=== PATIENT | female | born 1990 | race Two or more races ===

== ENCOUNTER 2022-06-30 13:52 | Outpatient (CLI) | payer OTHER | END 2022-06-30 13:53 | disposition home or self-care (01) | LOC: LAB 13:52 | PROVIDERS: ATTEND Nurse Practitioner | DX: Z32.01 Encounter for pregnancy test, result positive (principal) | CPT/HCPCS: 36415; 84702 ==

== ENCOUNTER 2022-07-05 12:26 | Outpatient (CLI) | payer OTHER ==
[2022-07-05 13:16] LABS: THYROID STIMULATING HORMONE 2.61 uIU/mL (0.34-5.60)
[2022-07-05 13:18] LABS: FREE T4 (FREE THYROXINE) 0.78 ng/dL (0.58-1.64)
[2022-07-05 14:04] LABS: ESTIMATED AVERAGE GLUCOSE 108 mg/dL (70-100); HEMOGLOBIN A1c% 5.4 % (4.27-6.07)
[2022-07-08 16:08] LABS: CARDIOLIPIN IGG <9 GPL U/mL (0-14); CARDIOLIPIN IGM <9 MPL U/mL (0-12)
== END 2022-07-05 12:27 | disposition home or self-care (01) ==
LOC: LAB 12:26
PROVIDERS: ATTEND Nurse Practitioner
DX: N96 Recurrent pregnancy loss (principal); Z32.01 Encounter for pregnancy test, result positive
CPT/HCPCS: 36415; 83036; 84439; 84443; 84702; 85598; 85613; 85732; 86147

== ENCOUNTER 2022-07-11 12:51 | Outpatient (CLI) | payer OTHER | END 2022-07-11 12:52 | disposition home or self-care (01) | LOC: LAB 12:51 | PROVIDERS: ATTEND Nurse Practitioner | DX: O03.9 Complete or unspecified spontaneous abortion without complication (principal) | CPT/HCPCS: 36415; 84702 ==

== ENCOUNTER 2022-07-15 09:55 | Outpatient (CLI) | payer OTHER ==
--- NOTE | 2022-07-15 13:31 | Ultrasound Report ---
PROCEDURE: OB First Trimester w/TV INDICATIONS: POSITIVE TEST TECHNIQUE: Real-time scanning was performed of the fetus and maternal pelvic organs, with image documentation. Endovaginal scanning was also performed to better visualize the fetus and maternal ovaries. COMPARISON: None FINDINGS: Uterus normal in size, and echotexture. Endometrial thickness measures approximately 1 cm. No evidenc e of intrauterine . Both ovaries normal in size and echotexture. No evidence of adnexal mass IMPRESSION: No evidence of intrauterine . Differential possibilities include normal early , mis sed and nonvisualized ectopic Reviewed by: Nawaf Uriostegui MD on 07/15/2022 12:30 PM JOANNA Approved by: Nawaf Uriostegui MD on 07/15/2022 12:30 PM AKSHERRI Station ID: [id number]
== END 2022-07-15 09:56 | disposition home or self-care (01) ==
LOC: DI 09:55
PROVIDERS: ATTEND Nurse Practitioner
DX: Z32.01 Encounter for pregnancy test, result positive (principal)

== ENCOUNTER 2022-07-18 11:09 | Outpatient (CLI) | payer OTHER | END 2022-07-18 11:10 | disposition home or self-care (01) | LOC: LAB 11:09 | PROVIDERS: ATTEND Nurse Practitioner | DX: Z32.01 Encounter for pregnancy test, result positive (principal) | CPT/HCPCS: 36415; 84702 ==

== ENCOUNTER 2022-12-19 09:37 | Emergency (ER) | payer OTHER ==
[2022-12-19 09:51] VITALS: BP 124/69
[2022-12-19 10:39] LABS: BASOPHILS % (AUTO) 0.6 %; EOSINOPHILS # (AUTO) 0.1 10^3/uL (0.0-0.7); EOSINOPHILS % (AUTO) 1.4 %; HCT - HEMATOCRIT 43.5 % (37.0-47.0); HGB - HEMOGLOBIN 13.7 g/dL (12.0-16.0); LYMPHOCYTES # (AUTO) 1.8 10^3/uL (1.5-3.5); LYMPHOCYTES % (AUTO) 35.1 %; MEAN CORPUSCULAR HEMOGLOBIN 28.6 pg (27.0-31.0); MEAN CORPUSCULAR HGB CONC 31.5 g/dL (32.0-36.0); MEAN CORPUSCULAR VOLUME 90.8 fL (81.0-99.0); MEAN PLATELET VOLUME 10.7 fL (7.9-10.8); MONOCYTES # (AUTO) 0.3 10^3/uL (0.0-1.0); MONOCYTES % (AUTO) 5.2 %; NEUTROPHILS % (AUTO) 57.5 %; PLT - PLATELET COUNT 264 10^3/uL (130-450); RED BLOOD COUNT 4.79 10^6/uL (4.20-5.40); RED CELL DISTRIBUTION WIDTH 12.1 % (12.0-15.0); WHITE BLOOD COUNT 5.2 x10^3/uL (4.8-10.8)
[2022-12-19 11:13] LABS: HCG UR QUAL POSITIVE
[2022-12-19 11:17] LABS: ALBUMIN 4.3 g/dL (3.2-5.5); ALBUMIN/GLOBULIN RATIO 1.2 (1.0-2.2); BILIRUBIN,TOTAL 0.5 mg/dL (0.2-1.0); CALCIUM 9.6 mg/dL (8.5-10.3); CREATININE 0.6 mg/dL (0.4-1.0); POTASSIUM 4.2 mmol/L (3.5-5.0); TOTAL PROTEIN 7.9 g/dL (6.7-8.2)
--- NOTE | 2022-12-19 12:26 | Ultrasound Report ---
PROCEDURE: OB First Trimester w/TV INDICATIONS: bleeding OUTSIDE/PRIOR DATING DATA: Last menstrual period (LMP): 11/10/2022. LMP-based estimated date of delivery (SLICK): 08/17/2023. First dating scan (date and location): Today's exam. Estimated date of delivery (SLICK) from first dating scan: Not applicable. TECHNIQUE: Real-time scanning was performed of the fetus and maternal pelvic organs, with image documentation. Endovaginal scanning was also performed to better visualize the fetus and maternal ovaries. COMPARISON: FINDINGS: No intrauterine or gestational sac identified. Maternal organs: Ovaries are unremarkable. No free fluid. No adnexal mass. IMPRESSION: of unknown location, with no intrauterine gestational sac or adnexal mass visualized. Diffe rential includes early gestational , ectopic , or missed miscarriage. Trend beta hC Gs and sonographic follow up as necessary. Reviewed by: Daniel Osborn on 12/19/2022 12:24 PM PDT Approved by: Daniel Osborn on 12/19/2022 12:24 PM PDT Station ID: [id number]
--- NOTE | 2022-12-19 13:00 | ED Physician Documentation ---
PD HPI FEMALE - Stated complaint Stated Complaint: 5WKS PREG BLEEDING - Chief complaint Chief Complaint: Abd Pain - History obtained from History obtained from: Patient (32-year-old G4, P0, 3 miscarriages in the past. Last menses November 10. She had some spotting and dark discharge over the weekend not associated with any pain.) PD PAST MEDICAL HISTORY - Allergies Allergies/Adverse Reactions: Allergies Allergy/AdvReac Type Severity Reaction Status Date / Time No Known Drug Allergies Allergy Verified 12/19/22 09:50 PD ED PE NORMAL - Vitals Vital signs reviewed: Yes - General General: Alert and oriented X 3, No acute distress - Abdomen Abdomen: Soft, Non tender - Neuro Neuro: Alert and oriented X 3, Normal speech Results - Vitals Vitals: Vital Signs - 24 hr 12/19/22 09:48 Temperature 36.4 C L Heart Rate 65 Respiratory 20 Rate Blood Pressure 124/69 O2 Saturation 100 Oxygen O2 Source Room air - Labs Labs: Laboratory Tests 12/19/22 12/19/22 12/19/22 09:53 10:29 10:29 WBC 5.2 RBC 4.79 Hgb 13.7 Hct 43.5 MCV 90.8 MCH 28.6 MCHC 31.5 L RDW 12.1 Plt Count 264 MPV 10.7 Neut # (Auto) 3.0 Lymph # (Auto) 1.8 Teller # (Auto) 0.3 Eos # (Auto) 0.1 Baso # (Auto) 0.0 Absolute Nucleated RBC 0.00 Nucleated RBC % 0.0 Sodium 138 Potassium 4.2 Chloride 104 Carbon Dioxide 26 Anion Gap 8.0 BUN 11 Creatinine 0.6 Estimated GFR (MDRD) 114 Glucose 91 Calcium 9.6 Total Bilirubin 0.5 AST 18 ALT 18 Alkaline Phosphatase 28 L Total Protein 7.9 Albumin 4.3 Globulin 3.6 Albumin/Globulin Ratio 1.2 Lipase 39 HCG, Quant Urine HCG, Qual POSITIVE Blood Type Blood Type Recheck 12/19/22 12/19/22 12/19/22 10:29 10:29 10:57 WBC RBC Hgb Hct MCV MCH MCHC RDW Plt Count MPV Neut # (Auto) Lymph # (Auto) Teller # (Auto) Eos # (Auto) Baso # (Auto) Absolute Nucleated RBC Nucleated RBC % Sodium Potassium Chloride Carbon Dioxide Anion Gap BUN Creatinine Estimated GFR (MDRD) Glucose Calcium Total Bilirubin AST ALT Alkaline Phosphatase Total Protein Albumin Globulin Albumin/Globulin Ratio Lipase HCG, Quant 654.04 Urine HCG, Qual Blood Type A POSITIVE Blood Type Recheck A POSITIVE - Rads (name of study) OB ultrasound was nondiagnostic without IUP or abnormality. Relevant Findings:: Final report received, EMP independent interpretation of test PD Medical Decision Making - ED course Complexity details: reviewed results (CBC reviewed and normal. Chemistry panel reviewed and normal. hCG 654 and urine test positive) ED course: This is a 32-year-old woman who has symptoms concerning for miscarriage. Her beta hCG was below the discriminatory threshold and her ultrasound was nondiagnostic. Discussed need for close follow-up and repeat beta-hCG and she voices understanding. Departure - Departure Disposition: 01 Home, Self Care Clinical Impression: Threatened Condition: Good Record reviewed to determine appropriate education?: Yes Instructions: ED Miscarriage Poss Comments: You were seen today for concerns for bleeding and spotting with discharge in . As discussed, I cannot really give you any good nor bad news. Your beta hCG today was 654. The ultrasound did not show any evidence of , nor any concerning findings either. As discussed, we do not particularly expect to see any sign of until the beta-hCG is above 1500. Arrange with your doctor or your OB to have a repeat beta-hCG done in 48 hours, midmorning Monday, and ideally a repeat ultrasound in about a week. Return if worse. For your records your blood type is a positive. Discharge Date/Time: 12/19/22 13:29
== END 2022-12-19 13:29 | disposition home or self-care (01) ==
LOC: ED 09:37
DX: O20.0 Threatened abortion (principal); Z3A.01 Less than 8 weeks gestation of pregnancy
CPT/HCPCS: 36415; 80053; 81025; 83690; 84702; 85025; 86900; 86901; 99283; 99284

== ENCOUNTER 2022-12-21 11:57 | Outpatient (CLI) | payer OTHER ==
[2022-12-21 12:26] LABS: BASOPHILS % (AUTO) 0.5 %; EOSINOPHILS # (AUTO) 0.1 10^3/uL (0.0-0.7); EOSINOPHILS % (AUTO) 1.5 %; HCT - HEMATOCRIT 42.6 % (37.0-47.0); HGB - HEMOGLOBIN 13.6 g/dL (12.0-16.0); LYMPHOCYTES % (AUTO) 33.6 %; MEAN CORPUSCULAR HEMOGLOBIN 28.9 pg (27.0-31.0); MEAN CORPUSCULAR HGB CONC 31.9 g/dL (32.0-36.0); MEAN CORPUSCULAR VOLUME 90.6 fL (81.0-99.0); MEAN PLATELET VOLUME 10.6 fL (7.9-10.8); MONOCYTES # (AUTO) 0.3 10^3/uL (0.0-1.0); MONOCYTES % (AUTO) 5.3 %; NEUTROPHILS # (AUTO) 3.5 10^3/uL (1.5-6.6); NEUTROPHILS % (AUTO) 58.9 %; PLT - PLATELET COUNT 269 10^3/uL (130-450); WHITE BLOOD COUNT 5.9 x10^3/uL (4.8-10.8)
[2022-12-22 04:09] LABS: HBsAG SCREEN Negative (Negative)
[2022-12-22 07:10] LABS: HIV SCREEN 4TH GENERATION Non Reactive (Non Reactive)
== END 2022-12-21 11:58 | disposition home or self-care (01) ==
LOC: LAB 11:57
PROVIDERS: ATTEND Family Medicine
DX: O20.9 Hemorrhage in early pregnancy, unspecified (principal); Z3A.01 Less than 8 weeks gestation of pregnancy
CPT/HCPCS: 36415; 84702; 85025; 86592; 86762; 86850; 86900; 86901; 87340; 87389

== ENCOUNTER 2022-12-25 17:57 | Emergency (ER) | payer OTHER ==
[2022-12-25 19:34] LABS: BASOPHILS # (AUTO) 0.1 10^3/uL (0.0-0.1); BASOPHILS % (AUTO) 0.5 %; EOSINOPHILS # (AUTO) 0.1 10^3/uL (0.0-0.7); EOSINOPHILS % (AUTO) 1.2 %; HGB - HEMOGLOBIN 12.4 g/dL (12.0-16.0); LYMPHOCYTES # (AUTO) 2.7 10^3/uL (1.5-3.5); LYMPHOCYTES % (AUTO) 28.8 %; MEAN CORPUSCULAR HEMOGLOBIN 29.2 pg (27.0-31.0); MEAN CORPUSCULAR HGB CONC 31.8 g/dL (32.0-36.0); MEAN CORPUSCULAR VOLUME 91.8 fL (81.0-99.0); MEAN PLATELET VOLUME 10.5 fL (7.9-10.8); MONOCYTES # (AUTO) 0.5 10^3/uL (0.0-1.0); NEUTROPHILS % (AUTO) 64.3 %; PLT - PLATELET COUNT 228 10^3/uL (130-450); RED BLOOD COUNT 4.25 10^6/uL (4.20-5.40); RED CELL DISTRIBUTION WIDTH 12.3 % (12.0-15.0); WHITE BLOOD COUNT 9.4 x10^3/uL (4.8-10.8)
[2022-12-25 19:45] LABS: ALBUMIN 4.2 g/dL (3.2-5.5); ALBUMIN/GLOBULIN RATIO 1.3 (1.0-2.2); BILIRUBIN,TOTAL 0.8 mg/dL (0.2-1.0); CALCIUM 9.4 mg/dL (8.5-10.3); CREATININE 0.6 mg/dL (0.4-1.0); POTASSIUM 3.8 mmol/L (3.5-5.0); TOTAL PROTEIN 7.5 g/dL (6.7-8.2)
[2022-12-25 20:47] LABS: BILIRUBIN,URINE NEGATIVE (NEGATIVE); GLUCOSE, URINE (UA) NEGATIVE (NEGATIVE); KETONES,URINE (UA) 40 mg/dL (NEGATIVE); LEUKOCYTE ESTERASE, URINE NEGATIVE (NEGATIVE); NITRITE,URINE NEGATIVE (NEGATIVE); OCCULT BLOOD,URINE LARGE (NEGATIVE); PROTEIN,URINE NEGATIVE (NEGATIVE); UROBILINOGEN,URINE 0.2 (NORMAL) E.U./dL (NORMAL)
[2022-12-25 20:53] LABS: CLARITY,URINE CLEAR (CLEAR)
--- NOTE | 2022-12-25 20:57 | ED Physician Documentation ---
History of Present Illness - Stated complaint Stated Complaint: PREG/BLEEDING - Chief complaint Chief Complaint: Abd Pain - Additonal information Additional information: 32-year-old female presents to the emergency department for reevaluation of vaginal spotting and bleeding in the first trimester . LMP 11/10/2022. . She has had 3 miscarriages within the last year. She has been having rising hCGs initially 654 then 1273 and today 2685. An ultrasound completed on 19 December did not have findings of an IUP. She has been following closely with our OB clinic. Review of Systems Constitutional: denies: Fever, Chills : reports: LMP (11/10/22), Vaginal bleeding Musculoskeletal: denies: Neck pain, Back pain PD PAST MEDICAL HISTORY - Allergies Allergies/Adverse Reactions: Allergies Allergy/AdvReac Type Severity Reaction Status Date / Time No Known Drug Allergies Allergy Verified 12/25/22 18:04 PD ED PE NORMAL - General General: Alert and oriented X 3, No acute distress, Well developed/nourished - HEENT HEENT: Atraumatic, Moist mucous membranes - Neck Neck: Supple, no meningeal sign, No adenopathy - Cardiac Cardiac: RRR, No murmur - Respiratory Respiratory: No respiratory distress, Clear bilaterally - Abdomen Abdomen: Normal bowel sounds, Soft, Non distended. No: Non tender (No significant tenderness elicited with either light or deep palpation of the lower abdomen and pelvis) - Female Female : Deferred Results - Vitals Vitals: Vital Signs - 24 hr 12/25/22 12/25/22 18:04 21:11 Temperature 36.5 C 36.9 C Heart Rate 72 68 Respiratory 16 18 Rate Blood Pressure 113/62 94/65 O2 Saturation 100 100 Oxygen O2 Source Room air - Labs Labs: Laboratory Tests 12/25/22 12/25/22 12/25/22 19:27 19:27 19:27 WBC 9.4 RBC 4.25 Hgb 12.4 Hct 39.0 MCV 91.8 MCH 29.2 MCHC 31.8 L RDW 12.3 Plt Count 228 MPV 10.5 Neut # (Auto) 6.0 Lymph # (Auto) 2.7 [place] # (Auto) 0.5 Eos # (Auto) 0.1 Baso # (Auto) 0.1 Absolute Nucleated RBC 0.00 Nucleated RBC % 0.0 Sodium 137 Potassium 3.8 Chloride 102 Carbon Dioxide 27 Anion Gap 8.0 BUN 11 Creatinine 0.6 Estimated GFR (MDRD) 114 Glucose 85 Calcium 9.4 Total Bilirubin 0.8 AST 14 ALT 14 Alkaline Phosphatase 28 L Total Protein 7.5 Albumin 4.2 Globulin 3.3 Albumin/Globulin Ratio 1.3 Lipase 42 HCG, Quant Urine Color Urine Clarity Urine pH Ur Specific [place] Urine Protein Urine Glucose (UA) Urine Ketones Urine Occult Blood Urine Nitrite Urine Bilirubin Urine Urobilinogen Ur Leukocyte Esterase Urine RBC Urine WBC Ur Squamous Epith Cells Urine Bacteria Urine Mucus Ur Microscopic Review Urine Culture Comments Blood Type A POSITIVE 12/25/22 12/25/22 19:27 20:39 WBC RBC Hgb Hct MCV MCH MCHC RDW Plt Count MPV Neut # (Auto) Lymph # (Auto) [place] # (Auto) Eos # (Auto) Baso # (Auto) Absolute Nucleated RBC Nucleated RBC % Sodium Potassium Chloride Carbon Dioxide Anion Gap BUN Creatinine Estimated GFR (MDRD) Glucose Calcium Total Bilirubin AST ALT Alkaline Phosphatase Total Protein Albumin Globulin Albumin/Globulin Ratio Lipase HCG, Quant 2685.00 Urine Color YELLOW Urine Clarity CLEAR Urine pH 6.0 Ur Specific [place] 1.025 Urine Protein NEGATIVE Urine Glucose (UA) NEGATIVE Urine Ketones 40 H Urine Occult Blood LARGE H Urine Nitrite NEGATIVE Urine Bilirubin NEGATIVE Urine Urobilinogen 0.2 (NORMAL) Ur Leukocyte Esterase NEGATIVE Urine RBC 6-10 H Urine WBC 4-5 Ur Squamous Epith Cells MANY Squamous H Urine Bacteria Few Urine Mucus Few Strands Ur Microscopic Review INDICATED Urine Culture Comments NOT INDICATED Blood Type - Rads (name of study) pelvic Ob US Relevant Findings:: Other (Per invasive cardiovascular technologist no IUP is identified. There is a right adnexal mass and some left adnexal free fluid. Exam is concerning for right adnexal ectopic ) PD Medical Decision Making - ED course Complexity details: reviewed old records, reviewed results, re-evaluated patient, d/w senior internet sales consultant (Dr. Monge) ED course: 32-year-old female presents emergency department for evaluation of vaginal bleeding in first trimester . She had a last menstrual cycle on 10 November. She had an OB ultrasound completed on 19 December which did not have findings of an IUP. Her hCGs have steadily risen initially 654, then 1273 and today 2685. An ultrasound completed today in the emergency department continues to show no IUP however there is now a right adnexal mass concerning for an ectopic . Pt is Rh+. The patient presents alert well-appearing and hemodynamically stable. I have requested nursing staff to establish 2 large- bore IVs. I immediately contacted on-call OB Dr. Manuel Monge for further evaluation and management. He will come to evaluate the patient emergently. I have discussed the imaging findings with the patient and her at the bedside 2200: Dr. monge has been at the bedside consulting with pt and her . Decision pending for surgery vs methotrexate for further management of the ectopic . Pt is signed out to my night time colleague Dr. Robles to f/u with OB recs. Departure - Departure Clinical Impression: Ectopic of right ovary
[2022-12-25] MEDS ORDERED: SODIUM CHLORIDE 0.9% 1,000 ML IV STA (20:58)
--- NOTE | 2022-12-25 21:08 | Ultrasound Report ---
PROCEDURE: OB First Trimester w/TV INDICATIONS: vaginal bleeding 1st trimester OUTSIDE/PRIOR DATING DATA: Last menstrual period (LMP): 11/10/2022. LMP-based estimated date of delivery (SLICK): 08/17/2023. TECHNIQUE: Real-time scanning was performed of the fetus and maternal pelvic organs, with image documentation. Endovaginal scanning was also performed to better visualize the fetus and maternal ovaries. COMPARISON: OB ultrasound 12/19/2022 FINDINGS: Embryo: No intrauterine identified. There is a small amount of endometrial fluid in the lo wer uterine segment. Maternal organs: In the right adnexa, there is a heterogeneous hyperechoic mass with a central hypoe choic component. The mass measures up to approximately 1.9 x 1.4 x 1.5 cm. The ovaries appear within normal size limits. There is a small amount of free fluid in the left adnexa. IMPRESSION: 1. No intrauterine identified. 2. Heterogeneous right adnexal mass adjacent to the right ovary. 3. Given history of progressively increasing beta-hCG, the findings are highly suspicious for ectopic in the right adnexa. Findings discussed with Bouchra Rocha on 12/25/2022 at 9:05 PM. Reviewed by: Luis Angel Ascencio MD on 12/25/2022 9:06 PM PDT Approved by: Luis Angel Ascencio MD on 12/25/2022 9:06 PM PDT Station ID: [id number]
[2022-12-25 21:09] LABS: BACTERIA,URINE Few /HPF (None Seen); MUCUS,URINE Few Strands; SQUAMOUS EPITHELIAL CELL,UR MANY Squamous (<= Few)
--- NOTE | 2022-12-25 21:16 | CONSULTATION NOTE ---
Surgery Consult - Consult Date Consult Date: 12/25/22 Requesting Provider: CHRIS Lentz - Chief Complaint Chief Complaint: Vaginal Bleeding, Rising HCG - Home Meds/Allergies Allergies/Adverse Reactions: Allergies Allergy/AdvReac Type Severity Reaction Status Date / Time No Known Drug Allergies Allergy Verified 12/25/22 18:04 - Vital Signs Vital Signs: Last Vital Signs Temp 98.4 F 12/25/22 21:11 Pulse 68 12/25/22 21:11 Resp 18 12/25/22 21:11 BP 94/65 12/25/22 21:11 Pulse Ox 100 12/25/22 21:11 O2 Flow Rate - Lab Results Result Diagrams: 12/25/22 19:27 12/25/22 19:27 - Consultation Note Consultation Note: HPI: Patient is a 32-year-old -0-3-1 at approximately 6 weeks gestation. She started having some spotting on 12/16/2022 at that point came to the ED on 12/19/2022. She had an ultrasound showing nothing in the uterus and an hCG of 654. She was instructed to return 2 days later which she did and had a rising hCG to 1273 with still nothing in the uterus. Today she returned with a quantitative hCG of 2685 with a concern for a right adnexal . This measures approximately 2 cm in diameter. She is not having any abdominal pain but continues to have some bleeding and passed a small amount of tissue, but inconclusive based on picture, although does look like blood clot and possibly s ome decidua.. All other symptoms reviewed and were negative except per HPI. PMH Recurrent loss PSH No prior surgeries SH Denies tobacco, alcohol, drugs Family History Noncontributory Allergies No known drug allergies Medications No medications Physical exam: General: Alert, oriented, no acute distress Head: Normal cephalic atraumatic Eyes: PERRLA, extraocular motions intact. Respiratory: Normal rate of respiration. No accessory muscle use, normal respiratory effort. Cardiovascular: Regular rate and rhythm Abdomen: Soft, nontender, nondistended Extremities: Normal range of motion Neuro: Oriented x3. Normal movements Psych: Appropriate mood and affect. Normal judgment and insight Transvaginal ultrasound: Right adnexal mass measuring 1.9 x 1.4 x 1.5 cm with heterogenous hyperechoic mass with a central hypoechoic component.. Ovaries appear normal. Uterus does not have an intrauterine . Small amount of endometrial fluid in the lower uterine segment. HCG 2685 Plan Patient is a 32-year-old -0-3-1 at approximately 6 weeks gestation with ectopic 1. Ectopic -Rising quantitative hCG up to 2600 from the last several checks. New finding of right adnexal hyperechoic mass measuring approximately 2 cm with hypoechoic center. Discussed the findings of this is very concerning for ectopic . Discussed that above 2500 is a good indicator when we should see a gestational sac, but there are instances of waiting until 3500. We discussed the risk of this when there is a concerning finding in the adnexa. If there is no concerning finding I would recommend waiting, however in this instance I believe it is safer to treat. -Discussed the risks and benefits of both surgical and medical management. Discussed the risk of surgery being infection, damage to other organs, bleeding. We did discuss that surgery would give us a possibly faster resolution and tissue diagnosis. This would also likely lead to removal of the tube. She is hesitant as she already struggles with recurrent loss and is worried about the difficulties of getting . -Discussed in detail the risks of methotrexate, although in likely a single dose, these risks are small. Told to expect some abdominal pain and nausea. Can develop conjunctivitis or stomatitis. Give a handout on ectopic pregnancies in the management of these. -Plan to administer methotrexate per patient's wishes. Will give a 100 mg dose, 50 mg/m2. Plan to repeat hCG on day 4 and day 7. Discussed expected fall and hCG at that point. We will draw day 7 next Monday, and will follow-up with me in clinic on Monday. We will make a plan as to future doses, surgery or monitoring hCGs at that point. 2. 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 We discussed that ectopic is a different process, although some underlying features may be similar. She previous had work-up done to rule out antiphospholipid antibody syndrome, but per patient nothing was found. -We discussed that while methotrexate should not alter future fertility, risks for ectopic include previous ectopic . She does deny any previous infections, surgeries, or other factors for loss or ectopic.
[2022-12-25] MEDS ORDERED: METHOTREXATE 50 MG/2 ML IM STA (22:51)
[2022-12-25 23:32] VITALS: BP 110/72
--- NOTE | 2022-12-26 00:16 | ED Physician Documentation ---
ED Addendum - Addendum Addendum: 12/26/22 00:13 I received signout on this patient from ANTHONY Rocha; please see her note for complete H&P. In short, patient presents and found on ultrasound to have findings concerning/suspicious for an ectopic . On-call HOSPITAL PHARMACY TECHNICIAN was consulted (Dr. Monge), and he did come to the emergency department and evaluated patient here. After he evaluated the patient, I discussed the plan with Dr. Monge. He says that he discussed options with patient, and the patient wishes to proceed with methotrexate. Dr. Monge ordered the dose of methotrexate, and says patient can be discharged provided she does not have any adverse reaction after 15-30 minutes of observation. I thus reevaluated the patient approximately 30 minutes after she received the methotrexate. She is smiling, and in no obvious/apparent discomfort or distress. She says she feels well and is requesting discharge home. She expresses to me that she does understand that she is to follow-up with Dr. Monge for further testing and possible redosing methotrexate depending on the results of further testing and the clinical situation. I encouraged her to return to the emergency department at any time she feels she needs reevaluation for worsening signs/symptoms.
== END 2022-12-26 00:15 | disposition home or self-care (01) ==
LOC: ED 17:57
DX: O00.201 Right ovarian pregnancy without intrauterine pregnancy (principal)
CPT/HCPCS: 36415; 76801; 76817; 80053; 81001; 83690; 84702; 85025; 86850; 86900; 86901; 96372; 99284; J9250; 81003; 87086

== ENCOUNTER 2022-12-29 09:47 | Outpatient (CLI) | payer OTHER | END 2022-12-29 09:48 | disposition home or self-care (01) | LOC: LAB 09:47 | PROVIDERS: ATTEND Obstetrics & Gynecology | DX: O00.80 Other ectopic pregnancy without intrauterine pregnancy (principal) | CPT/HCPCS: 36415; 84702 ==

== ENCOUNTER 2023-01-01 14:35 | Outpatient (CLI) | payer OTHER | END 2023-01-01 14:36 | disposition home or self-care (01) | LOC: LAB 14:35 | PROVIDERS: ATTEND Obstetrics & Gynecology | DX: O00.80 Other ectopic pregnancy without intrauterine pregnancy (principal) | CPT/HCPCS: 36415; 84702 ==

== ENCOUNTER 2023-01-08 18:31 | Outpatient (CLI) | payer OTHER | END 2023-01-08 18:32 | disposition home or self-care (01) | LOC: LAB 18:31 | PROVIDERS: ATTEND Obstetrics & Gynecology | DX: O00.80 Other ectopic pregnancy without intrauterine pregnancy (principal) | CPT/HCPCS: 36415; 84702 ==

== ENCOUNTER 2023-01-15 17:36 | Outpatient (CLI) | payer OTHER | END 2023-01-15 17:37 | disposition home or self-care (01) | LOC: LAB 17:36 | PROVIDERS: ATTEND Nurse Practitioner | DX: O00.80 Other ectopic pregnancy without intrauterine pregnancy (principal) | CPT/HCPCS: 36415; 84702 ==

== ENCOUNTER 2023-01-22 11:13 | Outpatient (CLI) | payer OTHER | END 2023-01-22 11:14 | disposition home or self-care (01) | LOC: LAB 11:13 | PROVIDERS: ATTEND Nurse Practitioner | DX: O00.80 Other ectopic pregnancy without intrauterine pregnancy (principal); O03.9 Complete or unspecified spontaneous abortion without complication; Z32.01 Encounter for pregnancy test, result positive | CPT/HCPCS: 36415; 84702 ==

== ENCOUNTER 2023-01-29 17:44 | Outpatient (CLI) | payer OTHER | END 2023-01-29 17:45 | disposition home or self-care (01) | LOC: LAB 17:44 | PROVIDERS: ATTEND Obstetrics & Gynecology | DX: O00.80 Other ectopic pregnancy without intrauterine pregnancy (principal) | CPT/HCPCS: 36415; 84702 ==

== ENCOUNTER 2023-02-05 16:20 | Outpatient (CLI) | payer OTHER | END 2023-02-05 16:21 | disposition home or self-care (01) | LOC: LAB 16:20 | PROVIDERS: ATTEND Obstetrics & Gynecology | DX: O00.80 Other ectopic pregnancy without intrauterine pregnancy (principal) | CPT/HCPCS: 36415; 84702 ==

== ENCOUNTER 2023-02-13 10:41 | Outpatient (CLI) | payer OTHER | END 2023-02-13 10:42 | disposition home or self-care (01) | LOC: LAB 10:41 | PROVIDERS: ATTEND Obstetrics & Gynecology | DX: O00.80 Other ectopic pregnancy without intrauterine pregnancy (principal) | CPT/HCPCS: 36415; 84702 ==